=== PATIENT | female | born 1955 | race Caucasian/White ===

== ENCOUNTER → 2022-01-12 | Outpatient (CLI) | payer BC ==
[~2022-01-12] VITALS: Ht 162.6 cm; Wt 62.6 kg
[~2022-01-12] MED LIST: EFFEXOR XR75 MG PO; OMEPRAZOLE20 M1 PO; PRAVACHOL40 MG PO; TORADOL 10 MG T10 MG PO
== END ==
LOC: EROP 10:55
DX: U07.1 COVID-19 (principal); Z23 Encounter for immunization
CPT/HCPCS: M0222; Q0222